=== PATIENT | female | born 1940 | race Caucasian/White ===

== ENCOUNTER → 2021-03-27 | Outpatient (CLI) | payer MEDICARE ==
[2021-03-27 23:18] LABS: Basophils # (A) 0.01 X 10*3/uL (0.00-0.10); Basophils % (A) 0.2 %; Eosinophils # (A) 0 X 10*3/uL (0.04-0.35); Eosinophils % (A) 0 %; HCT 39.7 % (37.2-46.3); Lymphocytes # (A) 0.79 X 10*3/uL (0.90-5.00); Lymphocytes % (A) 13.9 %; MCH 29.7 pg (27.0-32.0); MCHC 30.2 g/dL (32.0-37.0); MCV 98.3 fL (80.0-97.0); Mean Platelet Volume 10.8 fL (9.5-12.2); Monocytes # (A) 0.61 X 10*3/uL (0.20-1.00); Monocytes % (A) 10.7 %; Neutrophils # (A) 4.27 X 10*3/uL (1.80-7.70); Neutrophils % (A) 74.8 %; Platelet Count 280 X 10*3/uL (140-440); RBC 4.04 X 10*6/uL (4.10-5.20); RDW 15.9 % (11.5-14.5)
== END | disposition home or self-care (01) ==
LOC: LABWHC1 15:20
PROVIDERS: ATTEND Radiology Radiation Oncology
DX: C54.1 Malignant neoplasm of endometrium (principal)
CPT/HCPCS: 36415; 85025

== ENCOUNTER → 2021-07-23 | Outpatient (CLI) | payer MEDICARE ==
--- NOTE | 2021-07-23 21:58 | CT ---
EXAMINATION TYPE: CT Chest Abd Pelvis wo con DATE OF EXAM: 07/23/2021 COMPARISON: CT abdomen dated 01/28/2016 HISTORY: Malignant neoplasm of endometrium. Pt c/o distended belly. No oral or IV CT DLP: 296.50 mGycm. Automated Exposure Control for Dose Reduction was Utilized. TECHNIQUE: CT scan of the thorax, abdomen and pelvis is performed without IV contrast. FINDINGS: LUNGS: Severe COPD changes mainly involving the upper lobes. 5 mm nodule is seen in the left lower lo be (image #35, series 4). Other scattered smaller bilateral pulmonary nodules (arrows in axial lung w indow). Bilateral atelectasis along the inferior aspects of the oblique fissures. Patent trachea and main bronchi. No pleural effusion. MEDIASTINUM: Severe cardiomegaly, please correlate with echocardiographic results. Aortic, coronary a nd other arterial atherosclerotic calcifications. No pericardial effusion. No pathologically enlarged lymph nodes in the chest by this nonenhanced CT scan. OTHER: Bilateral breast calcifications, please correlate with mammography/breast ultrasound results. Diffuse osteopenia. No gross aggressive bone lesion LIVER/GB: No definite focal lesion by this nonenhanced CT scan. Previous cholecystectomy. PANCREAS: Atrophic pancreas. SPLEEN: No significant abnormality is seen. ADRENALS: Thickened left adrenal, stable. Unremarkable right adrenal. KIDNEYS: Suspected right renal cysts, suboptimally assessed. Unremarkable kidneys otherwise. The urin shobha bladder is suboptimally visualized. BOWEL: Unremarkable nondistended stomach and duodenum. No evidence of bowel obstruction. Fecal loadin g of the colon with extensive colonic diverticulosis most evident involving the sigmoid colon. Subopt imal assessment of the small and large bowel due to paucity of intra-abdominal fat and lack of IV con trast and oral contrast administration. Subtle bowel abnormality cannot be excluded by this CT scan m ainly in the pelvis. GENITAL ORGANS: Obscured by artifacts from the left hip prosthesis. Apparently bulky uterus. LYMPH NODES: Enlarged retroperitoneal left para-aortic and aortocaval lymph nodes measuring up to 13 mm, not appreciated previously. Metastatic lymph nodes cannot be excluded. No mesenteric lymphadenopa thy. OSSEOUS STRUCTURES: Left total hip arthroplasty. Degenerative changes of the right hip joint. Diffuse osteopenia. No gross aggressive bone lesion.. OTHER: Extensive arterial atherosclerotic calcifications. IMPRESSION: 1. Multiple pulmonary nodules measuring up to 5 mm as described above, nonspecific. No previous chest CT scan is available for comparison. Metastatic pulmonary nodules cannot be excluded. Recommend shor t-term follow-up or PET scan assessment. 2. Enlarged retroperitoneal lymph nodes as described above, not appreciated in 2016 CT scan, possibly metastatic. Bulky uterus. Further PET scan assessment can be considered. 3. No other obvious metastatic disease seen in the chest, abdomen or the pelvis with the limitation o f this nonenhanced CT scan. 4. Severe cardiomegaly and other incidental findings as detailed above.
== END | disposition home or self-care (01) ==
LOC: RADCTMAIN 16:58
PROVIDERS: ATTEND Radiology Radiation Oncology
DX: C54.1 Malignant neoplasm of endometrium (principal); I51.7 Cardiomegaly
CPT/HCPCS: 71250; 74176

== ENCOUNTER → 2021-08-15 | Outpatient (CLI) | payer MEDICARE ==
--- NOTE | 2021-08-16 07:36 | PE ---
EXAMINATION TYPE: PET CT fusion skull to thigh DATE OF EXAM: 08/15/2021 COMPARISON: Prior CT July 23, 2021 HISTORY: Endometrial cancer initial staging study. TECHNIQUE: Following the intravenous administration of 8.97 mCi of F-18 FDG, whole body images are p erformed from the skull base to the midthigh. Images are reviewed on the computer in the coronal, ax ial, and sagittal planes. Reconstructed rotating images are created on independent workstation and r eviewed on the computer. A localization and attenuation correction CT is performed in conjunction w ith the PET scan. Blood glucose level equals 97 SCAN: Initial Scan FINDINGS: SKULL BASE AND NECK: Abnormal 1.1 x 0.7 cm left supraclavicular lymph node axial image 55, max SUV i s 2.95. Abnormal subcentimeter left supraclavicular lymph nodes adjacent to each other axial image 60 measuri ng subcentimeter in size, max SUV is 2.63. CHEST, MEDIASTINUM, AND HILAR REGION: Moderate to borderline advanced underlying emphysematous change redemonstrated. No areas of abnormal hypermetabolic uptake. ABDOMEN AND PELVIS: Multiple enlarged hypermetabolic retroperitoneal lymph nodes. For reference there is 1.6 x 1.5 cm left periaortic lymph node axial image 149, max SUV is 7.94. Abnormal hypermetabolic adenopathy along the iliac chain vessels, there is 1.3 x 1.2 cm left common i liac chain lymph node axial image 173, max SUV is 6.05. Abnormal hypermetabolic uptake in the right pelvis are level of the uterus fairly diffusely presumed corresponding with newly diagnosed neoplasm, max SUV is 19.49. Slightly suboptimally evaluated due to adjacent metallic left hip arthroplasty. Scattered bilateral pelvic phleboliths are present. Normal excretion in bladder is seen inferior to this. OSSEOUS STRUCTURES: Metallic hardware from left hip arthroplasty is present causing streak artifact l imiting evaluation of pelvic structures. No areas of abnormal hypermetabolic uptake. OTHER CT: Cardiomegaly is present. There is severe biatrial dilatation. 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 Cholecystectomy clips are noted. Scattered pelvic phleboliths. IMPRESSION: There is known endometrial cancer with extensive retroperitoneal adenopathy in the abdome n and pelvis. Mildly hypermetabolic left supraclavicular lymph nodes of uncertain etiology metastatic neoplasm to this level cannot be excluded.
== END | disposition home or self-care (01) ==
LOC: RADPETMAIN 16:27
PROVIDERS: ATTEND Radiology Radiation Oncology
DX: C54.1 Malignant neoplasm of endometrium (principal); J44.9 Chronic obstructive pulmonary disease, unspecified
CPT/HCPCS: 78815; A9552